=== PATIENT | male | born 1960 | race Caucasian/White ===

== ENCOUNTER 2023-04-24 12:24 | Inpatient (IN) | payer MEDICARE, OTHER ==
[2023-04-24] MEDS ORDERED: SODIUM CHLORIDE 0.9% 1,000 ML IV STA ×2 (12:34→13:52)
[2023-04-24] MEDS ORDERED: MORPHINE SULFATE 4 MG/ML SYRINGE IVP PRN (12:36)
[2023-04-24] MEDS ORDERED: ONDANSETRON 4 MG/2 ML VIAL IVP STA (12:36)
[2023-04-24] MEDS ORDERED: PIPERACILLIN-TAZOBACTAM 3.375 GM in SODIUM CHLORIDE 0.9% 100 ML IVPB STA (12:40)
[2023-04-24] MEDS ORDERED: NALOXONE 0.4 MG/ML 1 ML VIAL IV PRN ×2 (13:11)
[2023-04-24 13:20] LABS: Basophils % (A) 0 %; Eosinophils % (A) 0 %; HCT 50.6 % (39.0-53.0); HGB 17.2 gm/dL (13.0-17.5); Lymphocytes # (A) 1.1 k/uL (1.0-4.8); Lymphocytes % (A) 7 %; MCH 32.3 pg (25.0-35.0); MCHC 33.9 g/dL (31.0-37.0); Mean Platelet Volume 8.9; Monocytes # (A) 0.7 k/uL (0-1.0); Monocytes % (A) 4 %; Neutrophils # (A) 13.7 k/uL (1.3-7.7); Neutrophils % (A) 88 %; Platelet Count 200 k/uL (150-450); RBC 5.32 m/uL (4.30-5.90); WBC 15.6 k/uL (3.8-10.6)
[2023-04-24 13:29] LABS: Partial Thromboplastin Time 22.2 sec (22.0-30.0); Prothrombin Time 10.9 sec (10.0-12.5)
[2023-04-24 13:30] LABS: ALT 46 U/L (4-49); AST 36 U/L (17-59); African American GFR (CKD) 44 (>60 ml/min/1.73 sqM); Albumin 4.9 g/dL (3.5-5.0); Alkaline Phosphatase 111 U/L (38-126); Amylase 77 U/L (30-110); Anion Gap 19 mmol/L; Blood Urea Nitrogen 22 mg/dL (9-20); Calcium 10.7 mg/dL (8.4-10.2); Carbon Dioxide 22 mmol/L (22-30); Chloride 101 mmol/L (98-107); Glucose 206 mg/dL (74-99); Lipase 88 U/L (23-300); Non-African American GFR(CKD) 38 (>60 ml/min/1.73 sqM); Potassium 4.2 mmol/L (3.5-5.1); Sodium 142 mmol/L (137-145); Total Bilirubin 1.5 mg/dL (0.2-1.3); Total Protein 8.6 g/dL (6.3-8.2)
--- NOTE | 2023-04-24 13:41 | ED ---
General Adult HPI - General Chief complaint: Abdominal Pain Stated complaint: abd pain Time Seen by Provider: 04/24/23 12:29 Source: patient, EMS, RN notes reviewed, old records reviewed Mode of arrival: EMS Limitations: no limitations - History of Present Illness Initial comments: Patient is a 63-year-old male who presents emergency Department from an outside facility attempted hospital being transferred for small bowel obstruction and surgical evaluation. His no history of abdominal surgeries. has a history of diabetes, hypertension, neuropathy. Its repair for surgical evaluation. His no acute complaints at this time. States his pain is much improved. Patient was already started on Zosyn, NG tube was placed, patient is nothing by mouth. Started on fluids. CT imaging of the outside facilities showed a high-grade small bowel obstruction. Presents for surgical evaluation. States pain is improved. - Related Data Home Medications Medication Instructions Recorded Confirmed Ammonium Lactate Lotion 1 applic TOPICAL BID PRN 04/24/23 04/24/23 [Lac-Hydrin 12% Lotion] Aspirin/Acetaminophen/Caffeine 2 tab PO DAILY PRN 04/24/23 04/24/23 [Excedrin Migraine Caplet] Atorvastatin [Lipitor] 20 mg PO HS 04/24/23 04/24/23 Betamethasone Valerate [Luxiq 0.1%] 1 applic TOPICAL DAILY PRN 04/24/23 04/24/23 Cetirizine HCl [Zyrtec] 10 mg PO DAILY 04/24/23 04/24/23 Famotidine [Pepcid] 40 mg PO HS 04/24/23 04/24/23 Fluticasone Nasal [place] [Flonase 2 spray EA NOSTRIL DAILY 04/24/23 04/24/23 Nasal [place]] Fluticasone Propionate 110 Mcg 2 puff INHALATION RT-BID 04/24/23 04/24/23 [Flovent 110 Mcg Inhaler] Metoprolol Tartrate [Lopressor] 50 mg PO BID 04/24/23 04/24/23 Montelukast [Singulair] 10 mg PO DAILY 04/24/23 04/24/23 Multivitamins, Thera [Multivitamin 1 tab PO DAILY 04/24/23 04/24/23 (formulary)] Sertraline [Zoloft] 50 mg PO DAILY 04/24/23 04/24/23 Tamsulosin HCl [Flomax] 0.8 mg PO DAILY 04/24/23 04/24/23 Triamcinolone 0.5% Cream [Kenalog 1 applic TOPICAL DAILY PRN 04/24/23 04/24/23 0.5% Cream] busPIRone HCL [Buspar] 30 mg PO BID 04/24/23 04/24/23 hydrOXYzine HCL [Atarax] 25 mg PO HS 04/24/23 04/24/23 traZODone HCL 225 mg PO HS 04/24/23 04/24/23 Allergies Allergy/AdvReac Type Severity Reaction Status Date / Time latex Allergy Unknown Verified 04/24/23 13:47 lisinopril Allergy Rash/Hives Verified 04/24/23 13:59 seafood Allergy Unknown Uncoded 04/24/23 12:52 Review of Systems ROS Statement: Those systems with pertinent positive or pertinent negative responses have been documented in the HPI. Review of Systems: CONST: Denies fever EYES: Denies blurry vision ENT: Denies nasal congestion C/V: Denies Chest pain RESP: Denies shortness of breath GI: Endorses abdominal pain : Denies dysuria SKIN: Denies rash. MSK: Denies joint pain. NEURO: Denies headache ROS Other: All systems not noted in ROS Statement are negative. Past Medical History Past Medical History: Diabetes Mellitus, GI Bleed Additional Past Medical History / Comment(s): Neuropathy, carpal tunnel, "kidney problems" History of Any Multi-Drug Resistant Organisms: None Reported Past Surgical History: No Surgical Hx Reported Past Psychological History: No Psychological Hx Reported Smoking Status: Never smoker Past Alcohol Use History: Rare Past Drug Use History: None Reported General Exam - General Exam Comments Initial Comments: General: Appears in no mild distress. HEAD: Normal with no signs of head trauma. EYES: PERRLA, EOMI, conjunctiva normal, no discharge. ENT: Hearing grossly intact, normal oropharynx. NG tube in place RESPIRATORY: Clear breath sounds bilaterally. No wheezes, rales, or rhonchi. C/V: Regular rate and rhythm. S1 and S2 auscultated, no edema, peripheral pulses 2+ and intact throughout ABD: Abd is soft, nontender, nondistended EXT: Normal range of motion, no obvious deformity SKIN: No rashes or lesions observed on exposed skin. NEURO: Alert and oriented 4 Limitations: no limitations Course Vital Signs 04/24/23 04/24/23 04/24/23 12:27 12:34 12:35 Temperature 97.7 F Pulse Rate 83 Respiratory 20 Rate Blood Pressure 154/73 O2 Sat by Pulse 98 99 Oximetry 04/24/23 04/24/23 12:40 13:00 Temperature Pulse Rate 88 Respiratory 20 Rate Blood Pressure 154/73 146/74 O2 Sat by Pulse 96 97 Oximetry Medical Decision Making - Medical Decision Making Was pt. sent in by a medical professional or institution (, PA, FLEXBOARD OPERATOR, urgent care, hospital, or intermediate...) When possible be specific @ -No Did you speak to anyone other than the patient for history (EMS, parent, family, police, friend...)? What history was obtained from this source @ -Spoke with Dr. Vargas for [facility] to inform me of the transfer and findings on workup. Did you review nursing and triage notes (agree or disagree)? Why? @ -I reviewed and agree with nursing and triage notes Were old charts reviewed (outside hosp., previous admission, EMS record, old EKG, old radiological studies, urgent care reports/EKG's, intermediate records)? Report findings @ -Charts reviewed from outside facility. Differential Diagnosis (chest pain, altered mental status, abdominal pain women, abdominal pain men, vaginal bleeding, weakness, fever, dyspnea, syncope, headache, dizziness, GI bleed, back pain, seizure, CVA, palpatations, mental health, musculoskeletal)? @ -Differential Abdominal Pain Men: Appendicitis, cholecystitis, diverticulosis, ischemic bowel, pancreatitis, hepatitis, UTI, gastroenteritis, AAA, incarcerated hernia, bowel obstruction, constipation, inflammatory bowel, hepatitis, peptic ulcer disease, splenic infarction, perforated viscus, testicular torsion, this is not meant to be an all-inclusive list EKG interpreted by me (3pts min.). @ -As above X-rays interpreted by me (1pt min.). @ -None done CT interpreted by me (1pt min.). @ -None done U/S interpreted by me (1pt. min.). @ -None done What testing was considered but not performed or refused? (CT, X-rays, U/S, labs)? Why? @ -None What meds were considered but not given or refused? Why? @ -None Did you discuss the management of the patient with other professionals (professionals i.e. , PA, FLEXBOARD OPERATOR, lab, RT, psych nurse, certified social workers in health care, environmental science program director, teacher, mechanical engineering officer, piano case and bench assembler)? Give summary @ -Spoke with Dr. Leon, the on-call surgeon who accepted the patient. Spoke with medicine on-call, Dr. Calhoun who accepted the patient. smoking cessation discussed for >3mins.? @ -No Was critical care preformed (if so, how long)? @ -No Were there social determinants of health that impacted care today? How? (H omelessness, low income, unemployed, alcoholism, drug addiction, transportation, low edu. Level, literacy, decrease access to med. care, snf, rehab)? @ -No Was there de-escalation of care discussed even if they declined (Discuss DNR or withdrawal of care, Hospice)? DNR status @ -No What co-morbidities impacted this encounter? (DM, HTN, Smoking, COPD, CAD, Cancer, CVA, ARF, Chemo, Hep., AIDS, mental health diagnosis, sleep apnea, morbid obesity)? @ -None Was patient admitted / discharged? Hospital course, mention meds given and route, prescriptions, significant lab abnormalities, going to OR and other pertinent info. @ -Based on the patient's presentation and physical exam, patient was transferred here for surgical evaluation for small bowel obstruction. Imaging is already uploaded into our system. Patient's workup at the outside facility remarkable for an elevated leukocytosis. We will repeat labs and admit the patient. He was in agreement this plan. We will continue IV fluids, Zosyn, NG tube to low intermittent suction, as well as continue nothing by mouth. Spoke with on-call surgeon, who accepted the admission and was in agreement this plan. Also spoke with medicine design sales consultant Dr. Calhoun who accepted the patient. Patient's labs returned remarkable for mildly decreased kidney function, and leukocytosis of 15.6. Patient does have lactic acidosis of 5. We'll administer additional fluid boluses and reevaluate. repeat LA was improved. Patient admitted in stable condition at this time. EKG shows a left bundle branch block, however patient is no cardiac symptoms at this time. He is on certain if he has had this in the past. The setting of recurrent small bowel obstruction, I believe this is an incidental finding we will continue to monitor. Patient agreement with this plan. Undiagnosed new problem with uncertain prognosis? @ -No Drug Therapy requiring intensive monitoring for toxicity (Heparin, Nitro, Insulin, Cardizem)? @ -No Were any procedures done? @ -No Diagnosis/symptom? @ -Small bowel obstruction Acute, or Chronic, or Acute on Chronic? @ -Acute Uncomplicated (without systemic symptoms) or Complicated (systemic symptoms)? @ -Complicated Side effects of treatment? @ -No Exacerbation, Progression, or Severe Exacerbation? @ -No Poses a threat to life or bodily function? How? (Chest pain, [place], HI, pneumonia, PE, COPD, DKA, ARF, appy, cholecystitis, CVA, Diverticulitis, Homicidal, Suicidal, threat to staff... and all critical care pts) @ -Yes - Lab Data Result diagrams: 04/24/23 12:46 04/24/23 12:46 Lab Results 04/24/23 04/24/23 04/24/23 Range/Units 12:46 12:46 12:46 WBC 15.6 H (3.8-10.6) k/uL RBC 5.32 (4.30-5.90) m/uL Hgb 17.2 (13.0-17.5) gm/dL Hct 50.6 (39.0-53.0) % MCV 95.0 (80.0-100.0) fL MCH 32.3 (25.0-35.0) pg MCHC 33.9 (31.0-37.0) g/dL RDW 13.0 (11.5-15.5) % Plt Count 200 (150-450) k/uL MPV 8.9 Neutrophils % 88 % Lymphocytes % 7 % Monocytes % 4 % Eosinophils % 0 % Basophils % 0 % Neutrophils # 13.7 H (1.3-7.7) k/uL Lymphocytes # 1.1 (1.0-4.8) k/uL Monocytes # 0.7 (0-1.0) k/uL Eosinophils # 0.0 (0-0.7) k/uL Basophils # 0.0 (0-0.2) k/uL PT 10.9 (10.0-12.5) sec INR 1.0 (<1.2) APTT 22.2 (22.0-30.0) sec Sodium 142 (137-145) mmol/L Potassium 4.2 (3.5-5.1) mmol/L Chloride 101 (98-107) mmol/L Carbon Dioxide 22 (22-30) mmol/L Anion Gap 19 mmol/L BUN 22 H (9-20) mg/dL Creatinine 1.84 H (0.66-1.25) mg/dL Est GFR (CKD-EPI)AfAm 44 (>60 ml/min/1.73 sqM) Est GFR (CKD-EPI)NonAf 38 (>60 ml/min/1.73 sqM) Glucose 206 H (74-99) mg/dL Plasma Lactic Acid Min (0.7-2.0) mmol/L Calcium 10.7 H (8.4-10.2) mg/dL Total Bilirubin 1.5 H (0.2-1.3) mg/dL AST 36 (17-59) U/L ALT 46 (4-49) U/L Alkaline Phosphatase 111 (38-126) U/L Total Protein 8.6 H (6.3-8.2) g/dL Albumin 4.9 (3.5-5.0) g/dL Amylase 77 (30-110) U/L Lipase 88 (23-300) U/L 04/24/23 Range/Units 12:46 WBC (3.8-10.6) k/uL RBC (4.30-5.90) m/uL Hgb (13.0-17.5) gm/dL Hct (39.0-53.0) % MCV (80.0-100.0) fL MCH (25.0-35.0) pg MCHC (31.0-37.0) g/dL RDW (11.5-15.5) % Plt Count (150-450) k/uL MPV Neutrophils % % Lymphocytes % % Monocytes % % Eosinophils % % Basophils % % Neutrophils # (1.3-7.7) k/uL Lymphocytes # (1.0-4.8) k/uL Monocytes # (0-1.0) k/uL Eosinophils # (0-0.7) k/uL Basophils # (0-0.2) k/uL PT (10.0-12.5) sec INR (<1.2) APTT (22.0-30.0) sec Sodium (137-145) mmol/L Potassium (3.5-5.1) mmol/L Chloride (98-107) mmol/L Carbon Dioxide (22-30) mmol/L Anion Gap mmol/L BUN (9-20) mg/dL Creatinine (0.66-1.25) mg/dL Est GFR (CKD-EPI)AfAm (>60 ml/min/1.73 sqM) Est GFR (CKD-EPI)NonAf (>60 ml/min/1.73 sqM) Glucose (74-99) mg/dL Plasma Lactic Acid Min 5.4 H* (0.7-2.0) mmol/L Calcium (8.4-10.2) mg/dL Total Bilirubin (0.2-1.3) mg/dL AST (17-59) U/L ALT (4-49) U/L Alkaline Phosphatase (38-126) U/L Total Protein (6.3-8.2) g/dL Albumin (3.5-5.0) g/dL Amylase (30-110) U/L Lipase (23-300) U/L - EKG Data -: EKG Interpreted by Me EKG Comments: 12-lead Electrocardiogram Interpretation Note EKG was reviewed and interpreted by myself. 12-lead ECG performed at 1358 is interpreted by me as revealing normal sinus rhythm at a rate of 82 beats per minute. Left axis deviation. Left bundle branch block. ND intervals 170 ms, QRS duration is 152 ms, QTc is 455 ms.. There were no ST or T wave abnormalit ies to suggest myocardial ischemia or injury. R wave progression across the precordium was satisfactory. By my interpretation this EKG is non-diagnostic for acute ischemia. Disposition Clinical Impression: Small bowel obstruction Disposition: ADMITTED IP TO THIS [facility] Condition: Stable Time of Disposition: 13:21
[2023-04-24] MEDS ORDERED: SODIUM CHLORIDE 0.9% 1,000 ML IV ONE (14:05)
[2023-04-24] MEDS ORDERED: AMMONIUM LACTATE 12% LOTION 225 GM BTL TOPICAL PRN (14:24)
[2023-04-24] MEDS ORDERED: TRIAMCINOLONE 0.1% CREAM 80 GM TUBE TOPICAL PRN (14:24)
[2023-04-24] MEDS ORDERED: TRIAMCINOLONE ACET 0.5% CREAM 15 GM TUBE TOPICAL PRN (14:24)
--- NOTE | 2023-04-24 14:30 | P.GSHP ---
History of Present Illness H&P Date: 04/24/23 CHIEF COMPLAINT: Abdominal pain HISTORY OF PRESENT ILLNESS: This is a 63-year-old male who presented with abdominal pain 1 day with nausea and vomiting. He initially went to [facility] and had a computed tomography scan completed there showed high-grade small bowel obstruction with transition point at the midline upper mid abdomen. Patient did have NG tube placed. Patient does report some relief in his abdominal distention and pain after NG tube placed. Patient reports pain across the mid and lower abdomen. He does report his last bowel movement was yesterday. Since then no further bowel movements and no significant flatus. Last colonoscopy 2 years ago normal. Denies any prior abdominal surgeries. PAST MEDICAL HISTORY: Hypertension, hyperlipidemia, diabetes mellitus PAST SURGICAL HISTORY: none MEDICATIONS: See below ALLERGIES: See below SOCIAL HISTORY: No illicit drug use. REVIEW OF SYSTEMS: CONSTITUTIONAL: Denies fever or chills. HEENT: Denies blurred vision, vision changes, or eye pain. Denies hemoptysis CARDIOVASCULAR: Denies chest pain or pressure. RESPIRATORY: No shortness of breath. GASTROINTESTINAL: See HPI for pertinent findings HEMATOLOGIC: Denies bleeding disorders. GENITOURINARY: Denies any blood in urine or increased urinary frequency. SKIN: Denies pruitis. Denies rash. PHYSICAL EXAM: VITAL SIGNS: Reviewed GENERAL: Well-developed in no acute distress. HEENT: No sclera icterus. Extraocular movements grossly intact. Moist buccal mucosa. Head is atraumatic, normocephalic. No nasal drainage. ABDOMEN: Soft. Distended with discomfort across the mid and lower abdomen. NEUROLOGIC: Alert and oriented. Cranial nerves II through XII grossly intact. LABORATORY DATA: WBC 15.6 Hgb 17.2 platelets 200 INR 1.0 Sodium 142 potassium 4.2 creatinine 1.84 Lactic acid 5.4 IMAGING: CT Scan abdomen reports high-grade small bowel obstruction with transition point at the midline upper and mid abdomen. Small bowel loops dilated up to 3.2 cm with reactive bowel wall thickening and mesenteric edema. Mid reactive free fluid also developed. No pneumatosis or free air. Asymmetrically smaller left kidney and indeterminate 1.9 cm lesion in the left kidney may represent cyst. Staghorn calculus left kidney underlying hepatic steatosis. Mild sigmoid diverticulosis. ASSESSMENT: 1. High-grade small bowel obstruction 2. Leukocytosis 3. Elevated lactic acid level 4. Acute kidney injury PLAN: -Continue NG tube for decompression -Keep patient nothing by mouth -Give 1 L fluid bolus for elevated lactic acid -Continue IV fluids -continue antibiotics -Medical service consulted for medical management -Continue pain management -Continue antiemetics -Repeat labs in a.m. Physician Section Cutter note has been reviewed by physician. Signing provider agrees with the documented findings, assessment, and plan of care. Past Medical History Past Medical History: Diabetes Mellitus, GI Bleed, Hypertension Additional Past Medical History / Comment(s): Neuropathy, carpal tunnel, "kidney problems" History of Any Multi-Drug Resistant Organisms: None Reported Past Surgical History: No Surgical Hx Reported Past Psychological History: No Psychological Hx Reported Smoking Status: Never smoker Past Alcohol Use History: Rare Past Drug Use History: None Reported Medications and Allergies Home Medications Medication Instructions Recorded Confirmed Type Ammonium Lactate Lotion 1 applic TOPICAL BID PRN 04/24/23 04/24/23 History [Lac-Hydrin 12% Lotion] Aspirin/Acetaminophen/Caffeine 2 tab PO DAILY PRN 04/24/23 04/24/23 History [Excedrin Migraine Caplet] Atorvastatin [Lipitor] 20 mg PO HS 04/24/23 04/24/23 History Betamethasone Valerate [Luxiq 0.1%] 1 applic TOPICAL DAILY PRN 04/24/23 04/24/23 History Cetirizine HCl [Zyrtec] 10 mg PO DAILY 04/24/23 04/24/23 History Famotidine [Pepcid] 40 mg PO HS 04/24/23 04/24/23 History Fluticasone Nasal [place] [Flonase 2 spray EA NOSTRIL DAILY 04/24/23 04/24/23 History Nasal [place]] Fluticasone Propionate 110 Mcg 2 puff INHALATION RT-BID 04/24/23 04/24/23 History [Flovent 110 Mcg Inhaler] Metoprolol Tartrate [Lopressor] 50 mg PO BID 04/24/23 04/24/23 History Montelukast [Singulair] 10 mg PO DAILY 04/24/23 04/24/23 History Multivitamins, Thera [Multivitamin 1 tab PO DAILY 04/24/23 04/24/23 History (formulary)] Sertraline [Zoloft] 50 mg PO DAILY 04/24/23 04/24/23 History Tamsulosin HCl [Flomax] 0.8 mg PO DAILY 04/24/23 04/24/23 History Triamcinolone 0.5% Cream [Kenalog 1 applic TOPICAL DAILY PRN 04/24/23 04/24/23 History 0.5% Cream] busPIRone HCL [Buspar] 30 mg PO BID 04/24/23 04/24/23 History hydrOXYzine HCL [Atarax] 25 mg PO HS 04/24/23 04/24/23 History traZODone HCL 225 mg PO HS 04/24/23 04/24/23 History Allergies Allergy/AdvReac Type Severity Reaction Status Date / Time latex Allergy Unknown Verified 04/24/23 13:47 lisinopril Allergy Rash/Hives Verified 04/24/23 13:59 seafood Allergy Unknown Uncoded 04/24/23 12:52 Surgical - Exam Vital Signs Temp Pulse Resp Pulse Ox 97.7 F 83 20 98 04/24/23 12:27 04/24/23 12:27 04/24/23 12:27 04/24/23 12:27 Results - Labs 04/24/23 12:46 04/24/23 12:46 Abnormal Lab Results - Last 24 Hours (Table) 04/24/23 04/24/23 04/24/23 Range/Units 12:46 12:46 12:46 WBC 15.6 H (3.8-10.6) k/uL Neutrophils # 13.7 H (1.3-7.7) k/uL BUN 22 H (9-20) mg/dL Creatinine 1.84 H (0.66-1.25) mg/dL Glucose 206 H (74-99) mg/dL Plasma Lactic Acid Min 5.4 H* (0.7-2.0) mmol/L Calcium 10.7 H (8.4-10.2) mg/dL Total Bilirubin 1.5 H (0.2-1.3) mg/dL Total Protein 8.6 H (6.3-8.2) g/dL Diabetes panel 04/24/23 Range/Units 12:46 Sodium 142 (137-145) mmol/L Potassium 4.2 (3.5-5.1) mmol/L Chloride 101 (98-107) mmol/L Carbon Dioxide 22 (22-30) mmol/L BUN 22 H (9-20) mg/dL Creatinine 1.84 H (0.66-1.25) mg/dL Glucose 206 H (74-99) mg/dL Calcium 10.7 H (8.4-10.2) mg/dL AST 36 (17-59) U/L ALT 46 (4-49) U/L Alkaline Phosphatase 111 (38-126) U/L Total Protein 8.6 H (6.3-8.2) g/dL Albumin 4.9 (3.5-5.0) g/dL Calcium panel 04/24/23 Range/Units 12:46 Calcium 10.7 H (8.4-10.2) mg/dL Albumin 4.9 (3.5-5.0) g/dL Pituitary panel 04/24/23 Range/Units 12:46 Sodium 142 (137-145) mmol/L Potassium 4.2 (3.5-5.1) mmol/L Chloride 101 (98-107) mmol/L Carbon Dioxide 22 (22-30) mmol/L BUN 22 H (9-20) mg/dL Creatinine 1.84 H (0.66-1.25) mg/dL Glucose 206 H (74-99) mg/dL Calcium 10.7 H (8.4-10.2) mg/dL Adrenal panel 04/24/23 Range/Units 12:46 Sodium 142 (137-145) mmol/L Potassium 4.2 (3.5-5.1) mmol/L Chloride 101 (98-107) mmol/L Carbon Dioxide 22 (22-30) mmol/L BUN 22 H (9-20) mg/dL Creatinine 1.84 H (0.66-1.25) mg/dL Glucose 206 H (74-99) mg/dL Calcium 10.7 H (8.4-10.2) mg/dL Total Bilirubin 1.5 H (0.2-1.3) mg/dL AST 36 (17-59) U/L ALT 46 (4-49) U/L Alkaline Phosphatase 111 (38-126) U/L Total Protein 8.6 H (6.3-8.2) g/dL Albumin 4.9 (3.5-5.0) g/dL
--- NOTE | 2023-04-24 14:40 | P.CONS ---
History of Present Illness - Reason for Consult Small bowel obstruction - History of Present Illness Patient is a 61-year-old male came in now for partial small bowel obstruction patient presently has an NG tube denied any previous history of small bowel obstructions in the past patient started having nausea vomiting abdominal pain for last couple days. CTX out outside facility did show high-grade small bowel obstruction. Patient does have leukocytosis does have elevated creatinine of 1.84 with BUN of 22 baseline creatinine is not available at this time REVIEW OF SYSTEMS: CONSTITUTIONAL: No fever, no malaise, no fatigue. HEENT: No recent visual problems or hearing problems. Denied any sore throat. CARDIOVASCULAR: No chest pain, orthopnea, PND, no palpitations, no syncope. PULMONARY: No shortness of breath, no cough, no hemoptysis. GASTROINTESTINAL: As mentioned in HPI NEUROLOGICAL: No headaches, no weakness, no numbness. HEMATOLOGICAL: Denies any bleeding or petechiae. GENITOURINARY: Denies any burning micturition, frequency, or urgency. MUSCULOSKELETAL/RHEUMATOLOGICAL: Denies any joint pain, swelling, or any muscle pain. ENDOCRINE: Denies any polyuria or polydipsia. The rest of the 14-point review of systems is negative. PHYSICAL EXAMINATION: GENERAL: The patient is alert and oriented x3, not in any acute distress. Well developed, well nourished. HEENT: Pupils are round and equally reacting to light. EOMI. No scleral icterus. No conjunctival pallor. Normocephalic, atraumatic. No pharyngeal erythema. No thyromegaly. CARDIOVASCULAR: S1 and S2 present. No murmurs, rubs, or gallops. PULMONARY: Chest is clear to auscultation, no wheezing or crackles. ABDOMEN: Distended tympanic with mild tenderness diffuse no bowel sounds. No palpable organomegaly. MUSCULOSKELETAL: No joint swelling or deformity. EXTREMITIES: No cyanosis, clubbing, or pedal edema. NEUROLOGICAL: Gross neurological examination did not reveal any focal deficits. SKIN: No rashes. Assessment and plan -Small bowel obstruction: Continue with NG tube decompression, IV fluids general surgery evaluation -Hyperlipidemia: Statin can be resumed whenever he can tolerate this medication -Depression: Patient is on Zoloft will need this medication need to be on the NG tube for half an hour after this medication -Present prostatic hypertrophy resumed on the Flomax -Hypertension on 9 metoprolol which will be continued -Elevated creatinine: BUN/creatinine ratio is consistent with chronic kidney disease unsure whether patient has acute renal failure constant nausea vomiting patient may have competent of acute renal failure for which patient was started on IV fluids cannot stays chronic kidney disease at this time. DVT prophylaxis: Subcutaneous heparin Past Medical History Past Medical History: Diabetes Mellitus, GI Bleed, Hypertension Additional Past Medical History / Comment(s): Neuropathy, carpal tunnel, "kidney problems" History of Any Multi-Drug Resistant Organisms: None Reported Past Surgical History: No Surgical Hx Reported Past Psychological History: No Psychological Hx Reported Smoking Status: Never smoker Past Alcohol Use History: Rare Past Drug Use History: None Reported Medications and Allergies Home Medications Medication Instructions Recorded Confirmed Type Ammonium Lactate Lotion 1 applic TOPICAL BID PRN 04/24/23 04/24/23 History [Lac-Hydrin 12% Lotion] Aspirin/Acetaminophen/Caffeine 2 tab PO DAILY PRN 04/24/23 04/24/23 History [Excedrin Migraine Caplet] Atorvastatin [Lipitor] 20 mg PO HS 04/24/23 04/24/23 History Betamethasone Valerate [Luxiq 0.1%] 1 applic TOPICAL DAILY PRN 04/24/23 04/24/23 History Cetirizine HCl [Zyrtec] 10 mg PO DAILY 04/24/23 04/24/23 History Famotidine [Pepcid] 40 mg PO HS 04/24/23 04/24/23 History Fluticasone Nasal [place] [Flonase 2 spray EA NOSTRIL DAILY 04/24/23 04/24/23 History Nasal [place]] Fluticasone Propionate 110 Mcg 2 puff INHALATION RT-BID 04/24/23 04/24/23 History [Flovent 110 Mcg Inhaler] Metoprolol Tartrate [Lopressor] 50 mg PO BID 04/24/23 04/24/23 History Montelukast [Singulair] 10 mg PO DAILY 04/24/23 04/24/23 History Multivitamins, Thera [Multivitamin 1 tab PO DAILY 04/24/23 04/24/23 History (formulary)] Sertraline [Zoloft] 50 mg PO DAILY 04/24/23 04/24/23 History Tamsulosin HCl [Flomax] 0.8 mg PO DAILY 04/24/23 04/24/23 History Triamcinolone 0.5% Cream [Kenalog 1 applic TOPICAL DAILY PRN 04/24/23 04/24/23 History 0.5% Cream] busPIRone HCL [Buspar] 30 mg PO BID 04/24/23 04/24/23 History hydrOXYzine HCL [Atarax] 25 mg PO HS 04/24/23 04/24/23 History traZODone HCL 225 mg PO HS 04/24/23 04/24/23 History Allergies Allergy/AdvReac Type Severity Reaction Status Date / Time latex Allergy Unknown Verified 04/24/23 13:47 lisinopril Allergy Rash/Hives Verified 04/24/23 13:59 seafood Allergy Unknown Uncoded 04/24/23 12:52 Physical Exam Vitals: Vital Signs Temp Pulse Resp BP Pulse Ox 04/24/23 12:35 154/73 04/24/23 12:27 97.7 F 83 20 98 Intake and Output 04/23/23 04/24/23 04/24/23 22:59 06:59 14:59 Other: Weight 83.915 kg Results CBC & Chem 7: 04/24/23 12:46 04/24/23 12:46 Labs: Abnormal Lab Results - Last 24 Hours (Table) 04/24/23 04/24/23 04/24/23 Range/Units 12:46 12:46 12:46 WBC 15.6 H (3.8-10.6) k/uL Neutrophils # 13.7 H (1.3-7.7) k/uL BUN 22 H (9-20) mg/dL Creatinine 1.84 H (0.66-1.25) mg/dL Glucose 206 H (74-99) mg/dL Plasma Lactic Acid Min 5.4 H* (0.7-2.0) mmol/L Calcium 10.7 H (8.4-10.2) mg/dL Total Bilirubin 1.5 H (0.2-1.3) mg/dL Total Protein 8.6 H (6.3-8.2) g/dL
[2023-04-24] MEDS: FLUTICASONE 110 MCG INHALER INHALATION SCH (20:27)
[2023-04-24] MEDS: ONDANSETRON 4 MG/2 ML VIAL IVP PRN (21:24)
[2023-04-24] MEDS: traZODone HCL 50 MG TAB PO SCH (23:02)
[2023-04-24] MEDS: ATORVASTATIN 20 MG TAB PO SCH (23:03)
[2023-04-24] MEDS: METOPROLOL TARTRATE 50 MG TAB PO SCH (23:03)
[2023-04-24] MEDS: busPIRone HCl 10 MG TAB PO SCH (23:03)
[2023-04-24] MEDS: PIPERACILLIN-TAZOBACTAM 3.375 GM in SODIUM CHLORIDE 0.9% 100 ML IVPB SCH (23:03)
[2023-04-25] MEDS: PIPERACILLIN-TAZOBACTAM 3.375 GM in SODIUM CHLORIDE 0.9% 100 ML IVPB SCH ×3 (05:43→23:07)
[2023-04-25] MEDS: ONDANSETRON 4 MG/2 ML VIAL IVP PRN (05:43)
[2023-04-25 08:47] LABS: Basophils # (A) 0.04 X 10*3/uL (0.00-0.10); Basophils % (A) 0.3 %; Eosinophils % (A) 2.6 %; HCT 46.5 % (39.6-50.0); Lymphocytes # (A) 1.16 X 10*3/uL (0.90-5.00); Lymphocytes % (A) 10.1 %; MCH 32.9 pg (27.0-32.0); MCHC 34.4 g/dL (32.0-37.0); MCV 95.7 FL (80.0-97.0); Mean Platelet Volume 11.8 FL (9.5-12.2); Monocytes # (A) 1.05 X 10*3/uL (0.20-1.00); Monocytes % (A) 9.1 %; NRBC Per 100 WBC 0 X 10*3/uL (0.00-0.01); Neutrophils # (A) 8.89 X 10*3/uL (1.80-7.70); Neutrophils % (A) 77.5 %; Platelet Count 173 X 10*3/uL (140-440); RBC 4.86 X 10*6/uL (4.40-5.60); RDW 13.8 % (11.5-14.5); WBC 11.49 X 10*3/uL (4.50-10.00)
[2023-04-25] MEDS: FLUTICASONE 110 MCG INHALER INHALATION SCH ×2 (09:04→20:02)
[2023-04-25 09:12] LABS: ALT 21 U/L (10-49); AST 43 U/L (14-35); Albumin 4.3 g/dL (3.8-4.9); Albumin/Globulin Ratio 1.43 Ratio (1.60-3.17); Alkaline Phosphatase 80 U/L (41-126); BUN/Creat Ratio 11.84 Ratio (12.00-20.00); Blood Urea Nitrogen 22.5 mg/dL (9.0-27.0); Calcium 9.9 mg/dL (8.7-10.3); Carbon Dioxide 27.3 mmol/L (21.6-31.8); Chloride 106 mmol/L (96-109); Glucose 142 mg/dL (70-110); Potassium 4.1 mmol/L (3.5-5.5); Sodium 147 mmol/L (135-145); Total Bilirubin 1.3 mg/dL (0.3-1.2); Total Protein 7.3 g/dL (6.2-8.2)
[2023-04-25] MEDS: PANTOPRAZOLE 40 MG/10 ML VIAL IV SCH (09:59)
[2023-04-25] MEDS: TAMSULOSIN 0.4 MG CAP.ER.24H PO SCH (09:59)
[2023-04-25] MEDS: SERTRALINE 50 MG TAB PO SCH (09:59)
[2023-04-25] MEDS: busPIRone HCl 10 MG TAB PO SCH ×2 (09:59→20:22)
[2023-04-25] MEDS: METOPROLOL TARTRATE 50 MG TAB PO SCH ×2 (10:00→20:23)
[2023-04-25] MEDS: MORPHINE SULFATE 4 MG/ML SYRINGE IV PRN ×3 (10:05→20:21)
--- NOTE | 2023-04-25 16:13 | P.PN ---
Subjective Progress Note Date: 04/25/23 CHIEF COMPLAINT: High-grade small bowel obstruction HISTORY OF PRESENT ILLNESS: Patient having bowel movements and small amount of flatus. He reports his pain is improved. He is feeling better. NG tube in place with dark output. Afebrile. WBC is 15.6 down to 11.49 hemoglobin 16 sodium 147 creatinine 1.9. Lactic acid 1.4 PHYSICAL EXAM: VITAL SIGNS: Reviewed. GENERAL: Well-developed in no acute distress. ABDOMEN: Soft. less distended. Mild tenderness across lower abdomen NEUROLOGIC: Alert and oriented. Cranial nerves II through XII grossly intact. ASSESSMENT: 1. High-grade small bowel obstruction 2. Leukocytosis 3. Elevated lactic acid level 4. Acute kidney injury PLAN: -Patient's bowel obstruction is improving. Surgery for today has been cancelled -Continue NG tube for decompression for today -Keep patient nothing by mouth -Continue IV fluids. IV fluids adjusted per and medicine service for hypernatremia -DVT prophylaxis subcu heparin Physician Porcelain Slusher note has been reviewed by physician. Signing provider agrees with the documented findings, assessment, and plan of care. Objective - Vital Signs Vital signs: Vital Signs Temp 99.2 F 04/25/23 07:40 Pulse 72 04/25/23 07:40 Resp 16 04/25/23 07:40 BP 160/102 04/25/23 07:40 Pulse Ox 96 04/25/23 07:40 FiO2 Intake & Output 04/24/23 04/25/23 04/25/23 18:59 06:59 18:59 Output Total 780 Balance -780 Weight 83.915 kg 83.915 kg Output: Gastric Drainage 780 Other: Voiding Method Toilet # Voids 1 - Labs CBC & Chem 7: 04/25/23 05:44 04/25/23 05:44 Labs: Abnormal Lab Results - Last 24 Hours (Table) 04/24/23 04/24/23 04/24/23 Range/Units 12:46 12:46 12:46 WBC 15.6 H (3.8-10.6) k/uL MCH (27.0-32.0) pg Immature Gran # (0.00-0.04) X 10*3/uL Neutrophils # 13.7 H (1.3-7.7) k/uL Monocytes # (0.20-1.00) X 10*3/uL Sodium (135-145) mmol/L Anion Gap (4.00-12.00) mmol/L BUN 22 H (9-20) mg/dL Creatinine 1.84 H (0.66-1.25) mg/dL Est GFR (CKD-EPI) (>=60) BUN/Creatinine Ratio (12.00-20.00) Ratio Glucose 206 H (74-99) mg/dL Plasma Lactic Acid Min 5.4 H* (0.7-2.0) mmol/L Calcium 10.7 H (8.4-10.2) mg/dL Total Bilirubin 1.5 H (0.2-1.3) mg/dL AST (14-35) U/L Total Protein 8.6 H (6.3-8.2) g/dL Albumin/Globulin Ratio (1.60-3.17) Ratio 04/24/23 04/25/23 04/25/23 Range/Units 15:49 05:44 05:44 WBC 11.49 H (3.8-10.6) k/uL MCH 32.9 H (27.0-32.0) pg Immature Gran # 0.05 H (0.00-0.04) X 10*3/uL Neutrophils # 8.89 H (1.3-7.7) k/uL Monocytes # 1.05 H (0.20-1.00) X 10*3/uL Sodium 147 H (135-145) mmol/L Anion Gap 13.70 H (4.00-12.00) mmol/L BUN (9-20) mg/dL Creatinine 1.9 H (0.66-1.25) mg/dL Est GFR (CKD-EPI) 39 L (>=60) BUN/Creatinine Ratio 11.84 L (12.00-20.00) Ratio Glucose 142 H (74-99) mg/dL Plasma Lactic Acid Min 2.2 H* (0.7-2.0) mmol/L Calcium (8.4-10.2) mg/dL Total Bilirubin 1.3 H (0.2-1.3) mg/dL AST 43 H (14-35) U/L Total Protein (6.3-8.2) g/dL Albumin/Globulin Ratio 1.43 L (1.60-3.17) Ratio
[2023-04-25] MEDS: DEXTROSE 5%-0.45% NACL 1,000 ML IV SCH (17:13)
[2023-04-25] MEDS: HEPARIN SODIUM,PORCINE 5,000 UNIT/ML 1 ML VIAL SQ SCH (20:21)
[2023-04-25] MEDS: ATORVASTATIN 20 MG TAB PO SCH (20:22)
[2023-04-25] MEDS: traZODone HCL 50 MG TAB PO SCH (23:07)
--- NOTE | 2023-04-26 04:59 | P.PN ---
Subjective Progress Note Date: 04/25/23 - Reason for Consult Small bowel obstruction - History of Present Illness Patient is a 61-year-old male came in now for partial small bowel obstruction p atient presently has an NG tube denied any previous history of small bowel obstructions in the past patient started having nausea vomiting abdominal pain for last couple days. CTX out outside facility did show high-grade small bowel obstruction. Patient does have leukocytosis does have elevated creatinine of 1.84 with BUN of 22 baseline creatinine is not available at this time 04/25/2023 Patient seen in follow-up this morning currently continues with NG tube which Gen. surgery following. Patient being monitored for high-grade obstruction and per surgery reports having flatus and bowel movements. Initially planned for surgical intervention although canceled at this time and being monitored. Patient will be continued on nothing by mouth diet and continued NG tube for now. On exam there are no bowel sounds noted in patient had not reported having bowel movements. White count mildly elevated although trending down as patient does not appear to have an infection. Patient continued on empiric antibiotics. Patient reports to feeling slightly improved today. Sodium level is elevated and we'll transition to D5 in half-normal saline and follow-up on repeat labs. Patient is currently afebrile with no reported chest pain or shortness of breath. Patient reports to having been up and walking and encouraged continued increased activity as tolerated. Review of systems: Constitutional: No reports of fatigue, fever, or chills Cardiovascular: No reports of chest pain or palpitations Respiratory: No reports of shortness of breath or cough GI: No reports of nausea, vomiting, or diarrhea, reports dark drainage in the NG tube and asking when the NG tube can be removed : No reports of dysuria or retention Neurovascular: No reports of weakness or numbness All medications have been reviewed PHYSICAL EXAMINATION: GENERAL: The patient is alert and oriented x3, not in any acute distress. Slightly anxious about overall hospitalization. Well developed, well nourished. HEENT: Pupils are round and equally reacting to light. EOMI. No scleral icterus. No conjunctival pallor. Normocephalic, atraumatic. No pharyngeal erythema. No thyromegaly. CARDIOVASCULAR: S1 and S2 present. No murmurs, rubs, or gallops. PULMONARY: Chest is clear to auscultation, no wheezing or crackles. ABDOMEN: Mildly distended although improved, soft, nontender, no bowel sounds appreciated on exam. No palpable organomegaly. MUSCULOSKELETAL: No joint swelling or deformity. EXTREMITIES: No cyanosis, clubbing, or pedal edema. NEUROLOGICAL: Gross neurological examination did not reveal any focal deficits. SKIN: No rashes. Assessment and plan: -Small bowel obstruction: Continue with NG tube decompression, currently nothing by mouth, able to clamp NG tube for medications and wait 30 minutes after medication administration, general surgery following recommend to continue with NG tube and nothing by mouth for now and has canceled surgery this patient is reporting improvement in pain and reports to having bowel movements -Hyperlipidemia: Statin can be resumed when diet has been advanced -Depression: Patient is on Zoloft will need to continue this medication, clamp NG tube for half an hour after this medication -Benign prostatic hypertrophy resumed on the Flomax -Hypertension , continue on metoprolol -Elevated creatinine: BUN/creatinine ratio is consistent with chronic kidney d isease unsure whether patient has acute renal failure. Patient reports he has "kidney issues" and has been having elevated lab values. Patient with persistent nausea vomiting present on admission which may have contributed to the elevated kidney functions. We'll continue to monitor and follow up on repeat labs -Hypernatremia likely secondary to volume depletion, we'll transition IV fluids to D5 in half-normal saline -DVT prophylaxis: Subcutaneous heparin -GI prophylaxis -Full code The impression and plan of care has been dictated by Mary Jean-Baptiste, Nurse Practitioner as directed. Dr. Lj MD I have performed a history and examination and MDM of this patient, discussed t he same with the dictator, and agree with the dictator's assessment and plan as written ,documented as a scribe. Based on total visit time, I have performed more than 50% of the visit. Objective - Vital Signs Vital signs: Vital Signs Temp 98.3 F 04/26/23 01:45 Pulse 61 04/26/23 01:45 Resp 16 04/26/23 01:45 BP 148/73 04/26/23 01:45 Pulse Ox 97 04/26/23 01:45 FiO2 Intake & Output 04/25/23 04/25/23 04/26/23 06:59 18:59 06:59 Output Total 780 Balance -780 Weight 83.915 kg Output: Gastric Drainage 780 Other: Voiding Method Toilet # Voids 1 3 - Labs CBC & Chem 7: 04/25/23 05:44 04/25/23 05:44 Labs: Abnormal Lab Results - Last 24 Hours (Table) 04/25/23 04/25/23 Range/Units 05:44 05:44 WBC 11.49 H (4.50-10.00) X 10*3/uL MCH 32.9 H (27.0-32.0) pg Immature Gran # 0.05 H (0.00-0.04) X 10*3/uL Neutrophils # 8.89 H (1.80-7.70) X 10*3/uL Monocytes # 1.05 H (0.20-1.00) X 10*3/uL Sodium 147 H (135-145) mmol/L Anion Gap 13.70 H (4.00-12.00) mmol/L Creatinine 1.9 H (0.6-1.5) mg/dL Est GFR (CKD-EPI) 39 L (>=60) BUN/Creatinine Ratio 11.84 L (12.00-20.00) Ratio Glucose 142 H (70-110) mg/dL Total Bilirubin 1.3 H (0.3-1.2) mg/dL AST 43 H (14-35) U/L Albumin/Globulin Ratio 1.43 L (1.60-3.17) Ratio
[2023-04-26] MEDS: MORPHINE SULFATE 4 MG/ML SYRINGE IV PRN ×3 (05:08→22:34)
[2023-04-26] MEDS: PIPERACILLIN-TAZOBACTAM 3.375 GM in SODIUM CHLORIDE 0.9% 100 ML IVPB SCH ×3 (05:17→22:34)
[2023-04-26] MEDS: DEXTROSE 5%-0.45% NACL 1,000 ML IV SCH ×2 (06:05→13:10)
[2023-04-26] MEDS: FLUTICASONE 110 MCG INHALER INHALATION SCH ×2 (07:50→18:35)
[2023-04-26 09:24] LABS: Basophils # (A) 0.03 X 10*3/uL (0.00-0.10); Basophils % (A) 0.3 %; Eosinophils # (A) 0.48 X 10*3/uL (0.04-0.35); Eosinophils % (A) 4.6 %; HCT 43.8 % (39.6-50.0); HGB 14.5 g/dL (13.0-17.0); Lymphocytes # (A) 1.51 X 10*3/uL (0.90-5.00); Lymphocytes % (A) 14.5 %; MCH 31.9 pg (27.0-32.0); MCHC 33.1 g/dL (32.0-37.0); MCV 96.3 FL (80.0-97.0); Mean Platelet Volume 11.4 FL (9.5-12.2); Monocytes # (A) 0.92 X 10*3/uL (0.20-1.00); Monocytes % (A) 8.9 %; NRBC Per 100 WBC 0 X 10*3/uL (0.00-0.01); Neutrophils # (A) 7.42 X 10*3/uL (1.80-7.70); Neutrophils % (A) 71.4 %; Platelet Count 144 X 10*3/uL (140-440); RBC 4.55 X 10*6/uL (4.40-5.60); RDW 13.8 % (11.5-14.5); WBC 10.39 X 10*3/uL (4.50-10.00)
[2023-04-26] MEDS: METOPROLOL TARTRATE 50 MG TAB PO SCH ×2 (09:33→20:16)
[2023-04-26] MEDS: TAMSULOSIN 0.4 MG CAP.ER.24H PO SCH (09:33)
[2023-04-26] MEDS: HEPARIN SODIUM,PORCINE 5,000 UNIT/ML 1 ML VIAL SQ SCH ×2 (09:33→20:16)
[2023-04-26] MEDS: busPIRone HCl 10 MG TAB PO SCH ×2 (09:33→20:16)
[2023-04-26] MEDS: PANTOPRAZOLE 40 MG/10 ML VIAL IV SCH (09:33)
[2023-04-26] MEDS: SERTRALINE 50 MG TAB PO SCH (09:33)
[2023-04-26 10:12] LABS: ALT 25 U/L (10-49); AST 59 U/L (14-35); Albumin 4.1 g/dL (3.8-4.9); Albumin/Globulin Ratio 1.46 Ratio (1.60-3.17); Alkaline Phosphatase 78 U/L (41-126); BUN/Creat Ratio 14.24 Ratio (12.00-20.00); Blood Urea Nitrogen 24.2 mg/dL (9.0-27.0); Calcium 9.4 mg/dL (8.7-10.3); Carbon Dioxide 26.3 mmol/L (21.6-31.8); Chloride 108 mmol/L (96-109); Globulin 2.8 g/dL (1.6-3.3); Glucose 135 mg/dL (70-110); Magnesium 2.3 mg/dL (1.5-2.4); Potassium 3.8 mmol/L (3.5-5.5); Sodium 147 mmol/L (135-145); Total Bilirubin 0.7 mg/dL (0.3-1.2); Total Protein 6.9 g/dL (6.2-8.2)
--- NOTE | 2023-04-26 11:21 | P.PN ---
Progress Note - Text Progress Note Date: 04/26/23 CHIEF COMPLAINT: High-grade small bowel obstruction HISTORY OF PRESENT ILLNESS: Patient having bowel movements and small amount of flatus. He reports his pain is improved. He is feeling better. NG tube in place with dark output. Afebrile. PHYSICAL EXAM: VITAL SIGNS: Reviewed. GENERAL: Well-developed in no acute distress. ABDOMEN: Soft. less distended. Mild tenderness across lower abdomen NEUROLOGIC: Alert and oriented. Cranial nerves II through XII grossly intact. ASSESSMENT: 1. High-grade small bowel obstruction 2. Leukocytosis 3. Elevated lactic acid level 4. Acute kidney injury PLAN: -Patient's bowel obstruction is improving. Surgery canceled yesterday -Continue NG tube for decompression for today -Keep patient nothing by mouth -Continue IV fluids. -DVT prophylaxis subcu heparin
--- NOTE | 2023-04-26 15:01 | P.PN ---
Subjective Progress Note Date: 04/26/23 Patient is a 61-year-old male came in now for partial small bowel obstruction patient presently has an NG tube denied any previous history of small bowel obstructions in the past patient started having nausea vomiting abdominal pain for last couple days. CTX out outside facility did show high-grade small bowel obstruction. Patient does have leukocytosis does have elevated creatinine of 1.84 with BUN of 22 baseline creatinine is not available at this time 04/25/2023 Patient seen in follow-up this morning currently continues with NG tube which Gen. surgery following. Patient being monitored for high-grade obstruction and per surgery reports having flatus and bowel movements. Initially planned for surgical intervention although canceled at this time and being monitored. Patient will be continued on nothing by mouth diet and continued NG tube for now. On exam there are no bowel sounds noted in patient had not reported having bowel movements. White count mildly elevated although trending down as patient does not appear to have an infection. Patient continued on empiric antibiotics. Patient reports to feeling slightly improved today. Sodium level is elevated and we'll transition to D5 in half-normal saline and follow-up on repeat labs. Patient is currently afebrile with no reported chest pain or shortness of breath. Patient reports to having been up and walking and encouraged continued increased activity as tolerated. 04/26/2023 Patient evaluated today resting in bed. He continues with NG tube for a high- grade bowel obstruction he is Passing gas and having bowel movements. He is wondering about eating. Overnight he's had a high amounts of gastric drainage. Today he also reports that he noticed that last week he was having some scrotal redness and then it turned a dark color. Upon physical examination the scrotum does not appear grossly red or swollen. There is no pain on palpation. He does not have any evidence of an inguinal hernia bilaterally. He does have findings of intertrigo in the bilateral groin to be treated. His blood work today shows a white count of 10.39, sodium of 147, BUN 24.2 and a creatinine of 1.7. Review of systems: Constitutional: No reports of fatigue, fever, or chills Cardiovascular: No reports of chest pain or palpitations Respiratory: No reports of shortness of breath or cough GI: No reports of nausea, vomiting, or diarrhea, reports dark drainage in the NG tube and asking when the NG tube can be removed : No reports of dysuria or retention Neurovascular: No reports of weakness or numbness All medications have been reviewed PHYSICAL EXAMINATION: GENERAL: The patient is alert and oriented x3, not in any acute distress. Slightly anxious about overall hospitalization. Well developed, well nourished. HEENT: Pupils are round and equally reacting to light. EOMI. No scleral icterus. No conjunctival pallor. Normocephalic, atraumatic. No pharyngeal erythema. No thyromegaly. CARDIOVASCULAR: S1 and S2 present. No murmurs, rubs, or gallops. PULMONARY: Chest is clear to auscultation, no wheezing or crackles. ABDOMEN: Mildly distended although improved, soft, nontender, no bowel sounds appreciated on exam. No palpable organomegaly. MUSCULOSKELETAL: No joint swelling or deformity. EXTREMITIES: No cyanosis, clubbing, or pedal edema. NEUROLOGICAL: Gross neurological examination did not reveal any focal deficits. SKIN: No rashes. Assessment and plan: -Small bowel obstruction: Continue with NG tube decompression, currently nothing by mouth, able to clamp NG tube for medications and wait 30 minutes after medication administration, general surgery following recommend to continue with NG tube and nothing by mouth for now and has canceled surgery this patient is reporting improvement in pain and reports to having bowel movements -Hyperlipidemia: Statin can be resumed when diet has been advanced -Depression: Patient is on Zoloft will need to continue this medication, clamp NG tube for half an hour after this medication -Benign prostatic hypertrophy resumed on the Flomax -Hypertension , continue on metoprolol -Elevated creatinine: BUN/creatinine ratio is consistent with chronic kidney disease unsure whether patient has acute renal failure. Patient reports he has "kidney issues" and has been having elevated lab values. His nausea vomiting has improved however he has been maintained nothing by mouth status. We will recommend to bladder scan this patient every 6 hours to rule out urinary retention and also to complete postvoid residuals. -Hypernatremia likely secondary to volume depletion, we'll transition IV fluids to D5 in half-normal saline -DVT prophylaxis: Subcutaneous heparin -GI prophylaxis -Full code The impression and plan of care has been dictated by Britt Wu Nurse Practitioner as directed. Dr. Lj MD I have performed a history and physical examination and medical decision making of this patient, discussed the same with the dictator, and agree with the dictators assessment and plan as written, documented as a scribe. Based on total visit time, I have performed more than 50% of this visit. Objective - Vital Signs Vital signs: Vital Signs Temp 98.3 F 04/26/23 01:45 Pulse 64 04/26/23 08:10 Resp 18 04/26/23 08:10 BP 157/78 04/26/23 08:10 Pulse Ox 99 04/26/23 08:10 FiO2 Intake & Output 04/25/23 04/26/23 04/26/23 18:59 06:59 18:59 Intake Total 900 Output Total 780 800 Balance -780 100 Intake: Intake, IV Titration 900 Amount Dextrose 5%-0.45% NaCl 1, 900 000 ml @ 75 mls/hr IV . [id number] [facility] Rx#:[id number] Output: Gastric Drainage 780 800 Other: # Voids 3 - Labs CBC & Chem 7: 04/26/23 06:14 04/26/23 06:14 Assessment and Plan Time with Patient: Less than 30
[2023-04-26] MEDS: DEXTROSE 5% IN WATER 1,000 ML IV SCH (15:45)
[2023-04-26] MEDS: ATORVASTATIN 20 MG TAB PO SCH (20:16)
[2023-04-26] MEDS: traZODone HCL 50 MG TAB PO SCH (22:34)
[2023-04-27] MEDS: DEXTROSE 5% IN WATER 1,000 ML IV SCH ×2 (05:26→13:34)
[2023-04-27] MEDS: MORPHINE SULFATE 4 MG/ML SYRINGE IV PRN (05:33)
[2023-04-27] MEDS: PIPERACILLIN-TAZOBACTAM 3.375 GM in SODIUM CHLORIDE 0.9% 100 ML IVPB SCH ×3 (05:33→21:22)
[2023-04-27 06:27] LABS: Basophils % (A) 0 %; Eosinophils # (A) 0.5 k/uL (0-0.7); Eosinophils % (A) 6 %; HCT 43.3 % (39.0-53.0); HGB 14.6 gm/dL (13.0-17.5); Lymphocytes # (A) 1.7 k/uL (1.0-4.8); Lymphocytes % (A) 21 %; MCH 32.8 pg (25.0-35.0); MCHC 33.7 g/dL (31.0-37.0); MCV 97.5 fL (80.0-100.0); Mean Platelet Volume 8.7; Monocytes # (A) 0.6 k/uL (0-1.0); Monocytes % (A) 8 %; Neutrophils % (A) 63 %; Platelet Count 137 k/uL (150-450); RBC 4.44 m/uL (4.30-5.90); RDW 13.4 % (11.5-15.5)
[2023-04-27 06:35] LABS: African American GFR (CKD) 52 (>60 ml/min/1.73 sqM); Anion Gap 12 mmol/L; Blood Urea Nitrogen 29 mg/dL (9-20); Calcium 9.1 mg/dL (8.4-10.2); Carbon Dioxide 23 mmol/L (22-30); Chloride 109 mmol/L (98-107); Glucose 126 mg/dL (74-99); Non-African American GFR(CKD) 45 (>60 ml/min/1.73 sqM); Potassium 3.5 mmol/L (3.5-5.1); Sodium 144 mmol/L (137-145)
[2023-04-27] MEDS: FLUTICASONE 110 MCG INHALER INHALATION SCH ×2 (08:51→20:09)
[2023-04-27] MEDS ORDERED: POTASSIUM CHLORIDE ER 20 MEQ TAB.ER PO STA (09:21)
[2023-04-27] MEDS: HEPARIN SODIUM,PORCINE 5,000 UNIT/ML 1 ML VIAL SQ SCH ×2 (09:36→21:22)
[2023-04-27] MEDS: busPIRone HCl 10 MG TAB PO SCH ×2 (09:36→21:22)
[2023-04-27] MEDS: METOPROLOL TARTRATE 50 MG TAB PO SCH ×2 (09:36→21:22)
[2023-04-27] MEDS: SERTRALINE 50 MG TAB PO SCH (09:36)
[2023-04-27] MEDS: PANTOPRAZOLE 40 MG/10 ML VIAL IV SCH (09:36)
[2023-04-27] MEDS: TAMSULOSIN 0.4 MG CAP.ER.24H PO SCH (09:36)
--- NOTE | 2023-04-27 11:15 | P.PN ---
Subjective Progress Note Date: 04/27/23 Principal diagnosis: Small bowel obstruction Patient doing well today. He has had 3 bowel movements. No nausea or vomiting. Nasogastric tube remains in place with minimal output. No significant pain. Objective - Vital Signs Vital signs: Vital Signs Temp 98.3 F 04/27/23 06:58 Pulse 62 04/27/23 08:45 Resp 16 04/27/23 08:45 BP 151/65 04/27/23 06:58 Pulse Ox 97 04/27/23 06:58 FiO2 Intake & Output 04/26/23 04/27/23 04/27/23 18:59 06:59 18:59 Intake Total 900 Output Total 700 Balance 200 Intake: Intake, IV Titration 900 Amount Dextrose 5% in Water 1, 900 000 ml @ 75 mls/hr IV . [id number] [facility] Rx#:[id number] Output: Gastric Drainage 700 Other: Voiding Method Toilet # Voids 3 4 - Exam Abdomen: Soft, nontender, nondistended - Labs CBC & Chem 7: 04/27/23 05:45 04/27/23 05:45 Labs: Abnormal Lab Results - Last 24 Hours (Table) 04/27/23 04/27/23 Range/Units 05:45 05:45 Plt Count 137 L (150-450) k/uL Chloride 109 H (98-107) mmol/L BUN 29 H (9-20) mg/dL Creatinine 1.60 H (0.66-1.25) mg/dL Glucose 126 H (74-99) mg/dL Assessment and Plan (1) Small bowel obstruction Narrative/Plan: Patient minute with small bowel obstruction by CAT scan findings at outside institution. Doing well at this time. Surgery was canceled on Friday since he was improving. He is now having bowel function. We'll check abdominal x-rays. If improved we will remove nasogastric tube. Etiology for small bowel dis tention remains unclear. Current Visit: Yes Status: Acute Code(s): K56.609 - UNSP INTESTNL OBST, UNSP TO PARTIAL VERSUS COMPLETE OBST SNOMED Code(s): 678736725
[2023-04-27] MEDS: NYSTATIN 100,000UNIT/GM CREAM 30 GM TUBE TOPICAL SCH ×2 (13:35→21:22)
--- NOTE | 2023-04-27 14:38 | XR ---
Abdomen: HISTORY: Bowel obstruction COMPARISON: None TECHNIQUE: 3 views the abdomen were obtained including upright view in 2 supine views. FINDINGS: There is an NG tube within the stomach. Bowel gas pattern is nonspecific and there is no evidence of obstruction. The osseous structures are intact. There is no free air beneath the diaphragm and the visualized lung bases are clear. IMPRESSION: 1. NG tube within the stomach. 2. Nonspecific abdomen without evidence of free air or obstruction.
--- NOTE | 2023-04-27 18:57 | P.PN ---
Subjective Progress Note Date: 04/27/23 Patient is a 61-year-old male came in now for partial small bowel obstruction patient presently has an NG tube denied any previous history of small bowel obstructions in the past patient started having nausea vomiting abdominal pain for last couple days. CTX out outside facility did show high-grade small bowel obstruction. Patient does have leukocytosis does have elevated creatinine of 1.84 with BUN of 22 baseline creatinine is not available at this time 04/25/2023 Patient seen in follow-up this morning currently continues with NG tube which Gen. surgery following. Patient being monitored for high-grade obstruction and per surgery reports having flatus and bowel movements. Initially planned for surgical intervention although canceled at this time and being monitored. Patient will be continued on nothing by mouth diet and continued NG tube for now. On exam there are no bowel sounds noted in patient had not reported having bowel movements. White count mildly elevated although trending down as patient does not appear to have an infection. Patient continued on empiric antibiotics. Patient reports to feeling slightly improved today. Sodium level is elevated and we'll transition to D5 in half-normal saline and follow-up on repeat labs. Patient is currently afebrile with no reported chest pain or shortness of breath. Patient reports to having been up and walking and encouraged continued increased activity as tolerated. 04/26/2023 Patient evaluated today resting in bed. He continues with NG tube for a high- grade bowel obstruction he is Passing gas and having bowel movements. He is wondering about eating. Overnight he's had a high amounts of gastric drainage. Today he also reports that he noticed that last week he was having some scrotal redness and then it turned a dark color. Upon physical examination the scrotum does not appear grossly red or swollen. There is no pain on palpation. He does not have any evidence of an inguinal hernia bilaterally. He does have findings of intertrigo in the bilateral groin to be treated. His blood work today shows a white count of 10.39, sodium of 147, BUN 24.2 and a creatinine of 1.7. 04/27/2023 Patient is evaluated today sitting up in the chair. He is upset today. He has NG tube in place. 700 mls of gastric drainage documented overnight. He will get a repeat abdominal xray today and tentatively have NG tube removed. Otherwise no acute complaints. Review of systems: Constitutional: No reports of fatigue, fever, or chills Cardiovascular: No reports of chest pain or palpitations Respiratory: No reports of shortness of breath or cough GI: No reports of nausea, vomiting, or diarrhea, reports dark drainage in the NG tube and asking when the NG tube can be removed : No reports of dysuria or retention Neurovascular: No reports of weakness or numbness All medications have been reviewed PHYSICAL EXAMINATION: GENERAL: The patient is alert and oriented x3, not in any acute distress. Slightly anxious about overall hospitalization. Well developed, well nourished. HEENT: Pupils are round and equally reacting to light. EOMI. No scleral icterus. No conjunctival pallor. Normocephalic, atraumatic. No pharyngeal erythema. No thyromegaly. CARDIOVASCULAR: S1 and S2 present. No murmurs, rubs, or gallops. PULMONARY: Chest is clear to auscultation, no wheezing or crackles. ABDOMEN: Mildly distended although improved, soft, nontender, no bowel sounds appreciated on exam. No palpable organomegaly. MUSCULOSKELETAL: No joint swelling or deformity. EXTREMITIES: No cyanosis, clubbing, or pedal edema. NEUROLOGICAL: Gross neurological examination did not reveal any focal deficits. SKIN: No rashes. Assessment and plan: -Small bowel obstruction: Continue with NG tube decompression, currently nothing by mouth, able to clamp NG tube for medications and wait 30 minutes after medication administration, general surgery following recommend to continue with NG tube and nothing by mouth for now and has canceled surgery this patient is reporting improvement in pain and reports to having bowel movements -Hyperlipidemia: Statin can be resumed when diet has been advanced -Depression: Patient is on Zoloft will need to continue this medication, clamp NG tube for half an hour after this medication -Benign prostatic hypertrophy resumed on the Flomax -Hypertension , continue on metoprolol -Elevated creatinine: BUN/creatinine ratio is consistent with chronic kidney disease unsure whether patient has acute renal failure. Patient reports he has "kidney issues" and has been having elevated lab values. His nausea vomiting has improved however he has been maintained nothing by mouth status. We will recommend to bladder scan this patient every 6 hours to rule out urinary retention and also to complete postvoid residuals. Creatinine today 1.6 -Hypernatremia likely secondary to volume depletion, we'll transition IV fluids to D5 in half-normal saline -Intertrigo bilateral groins nystatin cream has been added for this. -DVT prophylaxis: Subcutaneous heparin -GI prophylaxis -Full code The impression and plan of care has been dictated by Britt Wu, Nurse Practitioner as directed. Dr. Lj MD I have performed a history and physical examination and medical decision making of this patient, discussed the same with the dictator, and agree with the dictators assessment and plan as written, documented as a scribe. Based on total visit time, I have performed more than 50% of this visit. Objective - Vital Signs Vital signs: Vital Signs Temp 98.3 F 04/27/23 06:58 Pulse 62 04/27/23 06:58 Resp 16 04/27/23 06:58 BP 151/65 04/27/23 06:58 Pulse Ox 97 04/27/23 06:58 FiO2 Intake & Output 04/26/23 04/27/23 04/27/23 18:59 06:59 18:59 Intake Total 900 Output Total 700 Balance 200 Intake: Intake, IV Titration 900 Amount Dextrose 5% in Water 1, 900 000 ml @ 75 mls/hr IV . [id number] [facility] Rx#:[id number] Output: Gastric Drainage 700 Other: # Voids 3 4 - Labs CBC & Chem 7: 04/27/23 05:45 04/27/23 05:45 Labs: Abnormal Lab Results - Last 24 Hours (Table) 04/26/23 04/26/23 04/27/23 Range/Units 06:14 06:14 05:45 WBC 10.39 H (4.50-10.00) X 10*3/uL Plt Count 137 L (150-450) k/uL Eosinophils # 0.48 H (0.04-0.35) X 10*3/uL Sodium 147 H (135-145) mmol/L Chloride (98-107) mmol/L Anion Gap 12.70 H (4.00-12.00) mmol/L BUN (9-20) mg/dL Creatinine 1.7 H (0.6-1.5) mg/dL Est GFR (CKD-EPI) 44 L (>=60) Glucose 135 H (70-110) mg/dL AST 59 H (14-35) U/L Albumin/Globulin Ratio 1.46 L (1.60-3.17) Ratio 04/27/23 Range/Units 05:45 WBC (4.50-10.00) X 10*3/uL Plt Count (150-450) k/uL Eosinophils # (0.04-0.35) X 10*3/uL Sodium (135-145) mmol/L Chloride 109 H (98-107) mmol/L Anion Gap (4.00-12.00) mmol/L BUN 29 H (9-20) mg/dL Creatinine 1.60 H (0.6-1.5) mg/dL Est GFR (CKD-EPI) (>=60) Glucose 126 H (70-110) mg/dL AST (14-35) U/L Albumin/Globulin Ratio (1.60-3.17) Ratio Assessment and Plan Time with Patient: Less than 30
[2023-04-27] MEDS: ATORVASTATIN 20 MG TAB PO SCH (21:21)
[2023-04-27] MEDS: traZODone HCL 50 MG TAB PO SCH (23:27)
[2023-04-28] MEDS: PIPERACILLIN-TAZOBACTAM 3.375 GM in SODIUM CHLORIDE 0.9% 100 ML IVPB SCH ×3 (05:50→21:39)
[2023-04-28] MEDS: DEXTROSE 5% IN WATER 1,000 ML IV SCH (06:34)
[2023-04-28] MEDS: HEPARIN SODIUM,PORCINE 5,000 UNIT/ML 1 ML VIAL SQ SCH ×2 (08:14→21:42)
[2023-04-28] MEDS: PANTOPRAZOLE 40 MG/10 ML VIAL IV SCH (08:15)
[2023-04-28] MEDS: busPIRone HCl 10 MG TAB PO SCH ×2 (08:15→21:40)
[2023-04-28] MEDS: TAMSULOSIN 0.4 MG CAP.ER.24H PO SCH (08:15)
[2023-04-28] MEDS: METOPROLOL TARTRATE 50 MG TAB PO SCH ×2 (08:15→21:40)
[2023-04-28] MEDS: SERTRALINE 50 MG TAB PO SCH (08:15)
[2023-04-28] MEDS: NYSTATIN 100,000UNIT/GM CREAM 30 GM TUBE TOPICAL SCH ×2 (08:19→21:41)
[2023-04-28] MEDS: FLUTICASONE 110 MCG INHALER INHALATION SCH ×2 (09:23→20:27)
[2023-04-28 09:29] LABS: BUN/Creat Ratio 14.94 Ratio (12.00-20.00); Blood Urea Nitrogen 25.4 mg/dL (9.0-27.0); Calcium 9.1 mg/dL (8.7-10.3); Carbon Dioxide 23.8 mmol/L (21.6-31.8); Chloride 108 mmol/L (96-109); Glucose 138 mg/dL (70-110); Potassium 3.6 mmol/L (3.5-5.5); Sodium 144 mmol/L (135-145)
--- NOTE | 2023-04-28 11:53 | P.PN ---
Subjective Progress Note Date: 04/28/23 CHIEF COMPLAINT: High-grade small bowel obstruction HISTORY OF PRESENT ILLNESS: Patient continues to feel better. He is sitting at bedside chair. He has had bowel movements and flatus. He reports decrease in his nausea and decrease in pain. NG tube with only 150 mL output since yesterday. Abdominal x-ray nonspecific abdomen without evidence of free air or obstruction. Sodium 144 potassium 3.6 creatinine 1.7. White count down to 8.0 as of yesterday. NO history of prior abdominal surgeries. PHYSICAL EXAM: VITAL SIGNS: Reviewed. GENERAL: Well-developed in no acute distress. ABDOMEN: Soft. less distended. Mild tenderness across lower abdomen NEUROLOGIC: Alert and oriented. Cranial nerves II through XII grossly intact. ASSESSMENT: 1. High-grade small bowel obstruction improved PLAN: -Discontinue NG tube -Start clear liquid diet -Encouraged patient to increase activity level -DVT prophylaxis subcu heparin Physician Shipping Coordinator note has been reviewed by physician. Signing provider agrees with the documented findings, assessment, and plan of care. I have personally seen and examined the patient, reviewed the BELT POLISHER /PAs history, exam and MDM and agree with the assessment and plan as written. Based on total visit time, I have performed more than 50% of the visit. As above: Patient doing well today. Having bowel function. Denies pain. Abdominal examination shows mild tenderness much improved. Continue slowly advancing diet. If doing well possible discharge tomorrow with outpatient follow-up with Dr. Leon. Objective - Vital Signs Vital signs: Vital Signs Temp 98.4 F 04/28/23 08:00 Pulse 80 04/28/23 08:00 Resp 18 04/28/23 08:00 BP 167/72 04/28/23 08:00 Pulse Ox 98 04/28/23 08:00 FiO2 Intake & Output 04/27/23 04/28/23 04/28/23 18:59 06:59 18:59 Intake Total 0 900 Balance 0 900 Intake: Intake, IV Titration 900 Amount Dextrose 5% in Water 1, 900 000 ml @ 75 mls/hr IV . [id number] [facility] Rx#:[id number] Oral 0 Other: Voiding Method Toilet # Voids 2 4 - Labs CBC & Chem 7: 04/27/23 05:45 04/28/23 05:12 Labs: Abnormal Lab Results - Last 24 Hours (Table) 04/28/23 Range/Units 05:12 Anion Gap 12.20 H (4.00-12.00) mmol/L Creatinine 1.7 H (0.6-1.5) mg/dL Est GFR (CKD-EPI) 44 L (>=60) Glucose 138 H (70-110) mg/dL
[2023-04-28] MEDS ORDERED: DEXTROSE 50% SYRINGE 50 ML IVP PRN ×2 (14:01)
[2023-04-28 15:15] VITALS: BMI 29.0
[2023-04-28 16:37] LABS: Glucose,Whole Blood 183 mg/dL (70-110)
[2023-04-28] MEDS: INSULIN ASPART (NovoLOG) 100 UNIT/ML VIAL SQ SCH ×2 (16:41→21:33)
[2023-04-28 21:15] LABS: Glucose,Whole Blood 102 mg/dL (70-110)
[2023-04-28] MEDS: ATORVASTATIN 20 MG TAB PO SCH (21:40)
[2023-04-28] MEDS: traZODone HCL 50 MG TAB PO SCH (21:41)
--- NOTE | 2023-04-29 05:30 | P.PN ---
Subjective Progress Note Date: 04/28/23 - Reason for Consult Small bowel obstruction - History of Present Illness Patient is a 61-year-old male came in now for partial small bowel obstruction p atient presently has an NG tube denied any previous history of small bowel obstructions in the past patient started having nausea vomiting abdominal pain for last couple days. CTX out outside facility did show high-grade small bowel obstruction. Patient does have leukocytosis does have elevated creatinine of 1.84 with BUN of 22 baseline creatinine is not available at this time 04/25/2023 Patient seen in follow-up this morning currently continues with NG tube which Gen. surgery following. Patient being monitored for high-grade obstruction and per surgery reports having flatus and bowel movements. Initially planned for surgical intervention although canceled at this time and being monitored. Patient will be continued on nothing by mouth diet and continued NG tube for now. On exam there are no bowel sounds noted in patient had not reported having bowel movements. White count mildly elevated although trending down as patient does not appear to have an infection. Patient continued on empiric antibiotics. Patient reports to feeling slightly improved today. Sodium level is elevated and we'll transition to D5 in half-normal saline and follow-up on repeat labs. Patient is currently afebrile with no reported chest pain or shortness of breath. Patient reports to having been up and walking and encouraged continued increased activity as tolerated. 04/26/2023 Patient evaluated today resting in bed. He continues with NG tube for a high- grade bowel obstruction he is Passing gas and having bowel movements. He is wondering about eating. Overnight he's had a high amounts of gastric drainage. Today he also reports that he noticed that last week he was having some scrotal redness and then it turned a dark color. Upon physical examination the scrotum does not appear grossly red or swollen. There is no pain on palpation. He does not have any evidence of an inguinal hernia bilaterally. He does have findings of intertrigo in the bilateral groin to be treated. His blood work today shows a white count of 10.39, sodium of 147, BUN 24.2 and a creatinine of 1.7. 04/27/2023 Patient is evaluated today sitting up in the chair. He is upset today. He has NG tube in place. 700 mls of gastric drainage documented overnight. He will get a repeat abdominal xray today and tentatively have NG tube removed. Otherwise no acute complaints. 04/28/2023 Patient seen and evaluated this morning sitting up in the chair. Patient has had less drainage noted in the NG and is having bowel movements. NG tube to be discontinued per general surgery and patient will be advanced to clear liquids. Will resume appropriate home medications. Follow-up labs reveal a sodium of 144 patient was maintained on D5 half-normal saline and will discontinue and follow- up with repeat labs. Creatinine is 1.7 today and patient does have history of chronic kidney disease per patient. Patient has been encouraged to increase activity as tolerated. Patient reports has been up and walking. Patient reports to voiding with no difficulties and is asking for an advance in diet. Review of systems: Constitutional: No reports of fatigue, fever, or chills Cardiovascular: No reports of chest pain or palpitations Respiratory: No reports of shortness of breath or cough GI: No reports of nausea, vomiting, or diarrhea, reports dark drainage in the NG tube and asking when the NG tube can be removed : No reports of dysuria or retention Neurovascular: No reports of weakness or numbness All medications have been reviewed PHYSICAL EXAMINATION: GENERAL: The patient is alert and oriented x3, not in any acute distress. Well developed, well nourished. HEENT: Pupils are round and equally reacting to light. EOMI. No scleral icterus. No conjunctival pallor. Normocephalic, atraumatic. No pharyngeal erythema. No thyromegaly. CARDIOVASCULAR: S1 and S2 present. No murmurs, rubs, or gallops. PULMONARY: Chest is clear to auscultation, no wheezing or crackles. ABDOMEN: soft, nontender, bowel sounds noted. No palpable organomegaly. MUSCULOSKELETAL: No joint swelling or deformity. EXTREMITIES: No cyanosis, clubbing, or pedal edema. NEUROLOGICAL: Gross neurological examination did not reveal any focal deficits. SKIN: No rashes. Assessment and plan: -Small bowel obstruction: Improving and patient is having bowel movements, NG tube being discontinued today and being started on clear liquids per general surgery -Hyperlipidemia: Statin can be resumed as diet is being advanced -Depression: Patient is on Zoloft will need to continue this medication -Benign prostatic hypertrophy resumed on the Flomax -Hypertension , continue on metoprolol -Elevated creatinine: BUN/creatinine ratio is consistent with chronic kidney disease unsure whether patient has acute renal failure. Patient reports he has "kidney issues" and has been having elevated lab values. -Hypernatremia likely secondary to volume depletion, improving and patient being started on diet, will discontinue fluids -Intertrigo bilateral groins nystatin cream has been added for this. -DVT prophylaxis: Subcutaneous heparin -GI prophylaxis -Full code The impression and plan of care has been dictated by Mary Jean-Baptiste, Nurse Practitioner as directed. Dr. Lj MD I have performed a history and examination and MDM of this patient, discussed the same with the dictator, and agree with the dictator's assessment and plan as written ,documented as a scribe. Based on total visit time, I have performed more than 50% of the visit. Objective - Vital Signs Vital signs: Vital Signs Temp 98.4 F 04/29/23 01:48 Pulse 65 04/29/23 01:48 Resp 18 04/29/23 01:48 BP 156/81 04/29/23 01:48 Pulse Ox 99 04/29/23 01:48 FiO2 Intake & Output 04/28/23 04/28/23 04/29/23 06:59 18:59 06:59 Intake Total 900 Balance 900 Weight 83.915 kg Intake: Intake, IV Titration 900 Amount Dextrose 5% in Water 1, 900 000 ml @ 75 mls/hr IV . [id number] [facility] Rx#:[id number] Other: # Voids 4 5 - Labs CBC & Chem 7: 04/27/23 05:45 04/28/23 05:12 Labs: Abnormal Lab Results - Last 24 Hours (Table) 04/28/23 04/28/23 Range/Units 05:12 16:36 Anion Gap 12.20 H (4.00-12.00) mmol/L Creatinine 1.7 H (0.6-1.5) mg/dL Est GFR (CKD-EPI) 44 L (>=60) Glucose 138 H (70-110) mg/dL POC Glucose (mg/dL) 183 H (70-110) mg/dL
[2023-04-29 05:40] LABS: Glucose,Whole Blood 121 mg/dL (70-110)
[2023-04-29] MEDS: PIPERACILLIN-TAZOBACTAM 3.375 GM in SODIUM CHLORIDE 0.9% 100 ML IVPB SCH (06:04)
[2023-04-29] MEDS: INSULIN ASPART (NovoLOG) 100 UNIT/ML VIAL SQ SCH ×2 (07:09→12:22)
[2023-04-29] MEDS: FLUTICASONE 110 MCG INHALER INHALATION SCH (08:26)
[2023-04-29 09:18] LABS: BUN/Creat Ratio 12.88 Ratio (12.00-20.00); Blood Urea Nitrogen 21.9 mg/dL (9.0-27.0); Calcium 9.2 mg/dL (8.7-10.3); Carbon Dioxide 21.9 mmol/L (21.6-31.8); Chloride 107 mmol/L (96-109); Glucose 127 mg/dL (70-110); Magnesium 2.2 mg/dL (1.5-2.4); Potassium 3.4 mmol/L (3.5-5.5); Sodium 142 mmol/L (135-145)
[2023-04-29] MEDS: PANTOPRAZOLE 40 MG/10 ML VIAL IV SCH (09:22)
[2023-04-29] MEDS: SERTRALINE 50 MG TAB PO SCH (09:22)
[2023-04-29] MEDS: METOPROLOL TARTRATE 50 MG TAB PO SCH (09:22)
[2023-04-29] MEDS: TAMSULOSIN 0.4 MG CAP.ER.24H PO SCH (09:22)
[2023-04-29] MEDS: busPIRone HCl 10 MG TAB PO SCH (09:22)
[2023-04-29] MEDS: HEPARIN SODIUM,PORCINE 5,000 UNIT/ML 1 ML VIAL SQ SCH (09:23)
[2023-04-29] MEDS: NYSTATIN 100,000UNIT/GM CREAM 30 GM TUBE TOPICAL SCH (09:23)
[2023-04-29 11:10] LABS: Glucose,Whole Blood 93 mg/dL (70-110)
[2023-04-29] MEDS ORDERED: POTASSIUM CHLORIDE ER 20 MEQ TAB.ER PO STA (13:16)
--- NOTE | 2023-04-29 13:44 | P.DS ---
Providers Date of admission: 04/24/23 13:11 Expected date of discharge: 04/29/23 Attending physician: Eugene Leon Consults: 04/24/23 13:11 Consult Physician Routine Consulting Provider: Sean Fish Consult Reason/Comments: medical management Do you want consulting provider notified?: Yes 04/28/23 13:04 Consult Physician Routine Consulting Provider: Reij Bishop Consult Reason/Comments: SBO Do you want consulting provider notified?: Already Contacted Primary care physician: Jona Beard [facility] Course: Discharge diagnosis 1. High-grade small bowel obstruction improved with conservative management Hospital course This is a 63-year-old male who presented with abdominal pain with nausea and vomiting. He initially went to [facility] and had a computed tomography scan completed there showed high-grade small bowel obstruction with transition point at the midline upper mid abdomen. Patient did have NG tube placed. And then was transferred to [facility] for surgical evaluation. Patient initially boarded for surgery. However he did have improvement in his abdominal pain and distention. He started to have flatus and bowel movement. NG tube was removed. He was started on clear liquid diet. Patient is tolerating a full liquid diet. He continues have bowel movements. Pain is controlled. Denies any nausea or vomiting. He is afebrile. His small bowel obstruction improved with conservative management. He has been up and ambulating. He is stable for discharge. Recommend outpatient follow-up for colonoscopy. Please refer to [facility] rt for any further details. Physician Blow Moulding Machine Operator note has been reviewed by physician. Signing provider agrees with the documented findings, assessment, and plan of care. Patient Condition at Discharge: Stable Plan - Discharge Summary Discharge Rx Participant: Yes New Discharge Prescriptions: Continue Triamcinolone 0.5% Cream [Kenalog 0.5% Cream] 1 applic TOPICAL DAILY PRN PRN Reason: Skin Irritation traZODone HCL 225 mg PO HS Tamsulosin HCl [Flomax] 0.8 mg PO DAILY Sertraline [Zoloft] 50 mg PO DAILY Montelukast [Singulair] 10 mg PO DAILY busPIRone HCL [Buspar] 30 mg PO BID Aspirin/Acetaminophen/Caffeine [Excedrin Migraine Caplet] 2 tab PO DAILY PRN PRN Reason: Migraine Headache Betamethasone Valerate [Luxiq 0.1%] 1 applic TOPICAL DAILY PRN PRN Reason: Skin Irritation Atorvastatin [Lipitor] 20 mg PO HS Multivitamins, Thera [Multivitamin (formulary)] 1 tab PO DAILY Metoprolol Tartrate [Lopressor] 50 mg PO BID hydrOXYzine HCL [Atarax] 25 mg PO HS Fluticasone Nasal Maple [Flonase Nasal Maple] 2 spray EA NOSTRIL DAILY Fluticasone Propionate 110 Mcg [Flovent 110 Mcg Inhaler] 2 puff INHALATION RT-BID Famotidine [Pepcid] 40 mg PO HS Ammonium Lactate Lotion [Lac-Hydrin 12% Lotion] 1 applic TOPICAL BID PRN PRN Reason: Skin Irritation Discontinued Cetirizine HCl [Zyrtec] 10 mg PO DAILY Discharge Medication List Ammonium Lactate Lotion [Lac-Hydrin 12% Lotion] 1 applic TOPICAL BID PRN 04/24/23 [History] Aspirin/Acetaminophen/Caffeine [Excedrin Migraine Caplet] 2 tab PO DAILY PRN 04/24/23 [History] Atorvastatin [Lipitor] 20 mg PO HS 04/24/23 [History] Betamethasone Valerate [Luxiq 0.1%] 1 applic TOPICAL DAILY PRN 04/24/23 [History] Famotidine [Pepcid] 40 mg PO HS 04/24/23 [History] Fluticasone Nasal Maple [Flonase Nasal Maple] 2 spray EA NOSTRIL DAILY 04/24/23 [History] Fluticasone Propionate 110 Mcg [Flovent 110 Mcg Inhaler] 2 puff INHALATION RT- BID 04/24/23 [History] Metoprolol Tartrate [Lopressor] 50 mg PO BID 04/24/23 [History] Montelukast [Singulair] 10 mg PO DAILY 04/24/23 [History] Multivitamins, Thera [Multivitamin (formulary)] 1 tab PO DAILY 04/24/23 [History] Sertraline [Zoloft] 50 mg PO DAILY 04/24/23 [History] Tamsulosin HCl [Flomax] 0.8 mg PO DAILY 04/24/23 [History] Triamcinolone 0.5% Cream [Kenalog 0.5% Cream] 1 applic TOPICAL DAILY PRN 04/24/23 [History] busPIRone HCL [Buspar] 30 mg PO BID 04/24/23 [History] hydrOXYzine HCL [Atarax] 25 mg PO HS 04/24/23 [History] traZODone HCL 225 mg PO HS 04/24/23 [History] Follow up Appointment(s)/Referral(s): Jona Beard MD [Primary Care Provider] - 05/01/23 1:00 pm ([phone] With Angelo) Eugene Leon MD [STAFF PHYSICIAN] - 05/15/23 1:30 pm Patient Instructions/Handouts: Bowel Obstruction (DC) Activity/Diet/Wound Care/Special Instructions: Patient will need a cab at discharge, hospital to pay: [facility] [phone] Advance diet slowly as tolerated at home Discharge Disposition: HOME SELF-CARE
[2023-04-29 14:03] VITALS: BP 143/79; PULSE 78; RESP 20; TEMP 98.4
== END 2023-04-29 14:34 | disposition home or self-care (01) | DRG 389 ==
LOC: EC 12:24 → 4SSUR 13:11
PROVIDERS: ADMIT Surgery; ATTEND Surgery
PROC: 0D9670Z Drainage of Stomach with Drainage Device, Via Natural or Artificial Opening (ICD-10-PCS; principal; 2023-04-24)
DX: K56.609 Unspecified intestinal obstruction, unspecified as to partial versus complete obstruction (principal); E87.0 Hyperosmolality and hypernatremia; N17.9 Acute kidney failure, unspecified; I12.9 Hypertensive chronic kidney disease with stage 1 through stage 4 chronic kidney disease, or unspecified chronic kidney disease; E78.5 Hyperlipidemia, unspecified; E11.22 Type 2 diabetes mellitus with diabetic chronic kidney disease; E86.9 Volume depletion, unspecified; L30.4 Erythema intertrigo; N40.0 Benign prostatic hyperplasia without lower urinary tract symptoms; N18.9 Chronic kidney disease, unspecified; E11.42 Type 2 diabetes mellitus with diabetic polyneuropathy; Z79.899 Other long term (current) drug therapy; Z53.9 Procedure and treatment not carried out, unspecified reason; I44.7 Left bundle-branch block, unspecified; F32.A Depression, unspecified; Z91.040 Latex allergy status; Z88.8 Allergy status to other drugs, medicaments and biological substances; Z91.013 Allergy to seafood
CPT/HCPCS: 36415; 74019; 80048; 80053; 82150; 83036; 83605; 83690; 83735; 85025; 85610; 85730; 93005; 94640; 96361; 96365; 96375; 99285